=== PATIENT | female | born 1995 | race Asian ===

== ENCOUNTER 2024-07-19 12:15 | Emergency (ER) | payer SELFPAY ==
[~2024-07-19] VITALS: Ht 165.1 cm; Wt 54.0 kg
[2024-07-19 12:21] VITALS: O2SAT 100
[2024-07-19] MEDS ORDERED: ACET-2708 MT (15:39)
[2024-07-19 16:31] VITALS: BP 137/70; PULSE 78; RESP 16; TEMP 36.72516; O2SAT 100
== END 2024-07-19 17:00 | disposition home or self-care (01) ==
LOC: ER 12:39
DX: S93.401A Sprain of unspecified ligament of right ankle, initial encounter (principal); S09.90XA Unspecified injury of head, initial encounter; Y04.0XXA Assault by unarmed brawl or fight, initial encounter; Y93.89 Activity, other specified; Y92.89 Other specified places as the place of occurrence of the external cause; Y99.8 Other external cause status
CPT/HCPCS: 73610; 99283; Z7610